=== PATIENT | male | born 1970 | race Caucasian/White ===

== ENCOUNTER → 2021-05-31 03:51 | Outpatient (CLI) | payer OTHER, SELFPAY ==
[2021-05-31 18:30] LABS: SARS-CoV-2 RNA PCR Negative
== END ==
PROVIDERS: PCP Family Medicine; Visit Provider Surgery
DX: Z01.812 Encounter for preprocedural laboratory examination (principal); Z20.822 Contact with and (suspected) exposure to COVID-19
CPT/HCPCS: C9803; U0003; U0005

== ENCOUNTER 2021-06-03 02:32 | Day surgery (SDC) | payer OTHER, SELFPAY ==
[2021-05-31 10:39] VITALS: BMI 34.0
--- NOTE | 2021-06-02 15:00 | PM.SD2 ---
Same Day Admit/Disch: HPI History of Present Illness Chief complaint: umbilical hernia Narrative: Spenser Anderson is a 50 year old male with a 2 year history of an umbilical hernia. The hernia has had some overlying skin changes and is now larger and more bothersome. He was seen in the office and is taken to surgery for umbilical hernia repair with mesh under anesthesia as an outpatient. [facility] Surgical History Surgical History History of appendectomy Family History Family History Father Heart problem Mother Hypertension Sibling Asthma Grandparent Heart problem Grandparent Heart problem Social History Social History Smoking packs per day: 0.5 Smoking cigarettes per day: 10.0 Years smoked: 30 Smoking pack-years: 15.00 Smoking status: Former smoker Tobacco type: cigarettes Smoking end date: 08/16/11 Alcohol intake: current Drinks per week: 1 Substance use type: does not use Living arrangements: with family Spiritual care concerns: No Same Day Admit/Disch: Med Pre-admit Medications Home Medications Medication Instructions Recorded Confirmed Type hydrocodone-acetaminophen 1 - 2 tablet PO Q6H PRN #10 tablet 06/03/21 Rx ketorolac 10 mg PO Q6H 4 Days #16 tablet 06/03/21 Rx Exam Const: General: comfortable, no acute distress, alert and awake HENMT: Head: normocephalic and atraumatic Mouth: Yes Normal oral and palatal mucosa present Eyes: Conjunctivae: conjunctivae normal Pupils: Equal, round and reactive pupils present EOM: EOMs intact bilaterally Neck: Neck: normal visual inspection, no lymphadenopathy and nontender Resp: Effort & Inspection: normal respiratory effort Auscultation: clear to auscultation bilaterally Cardio: Rate: regular rate Rhythm: regular rhythm Heart sounds: no gallops, no murmurs and no rubs GI: Inspection: non-distended, visible herniation (Umbilical with dusky overlying skin) and other (Diastasis recti noted) GI Palp: Yes Soft to palpation, No Hepatomegaly present, No Splenomegaly present and Yes Hernia present (Umbilical, too tender to reduce) Auscultation: normal bowel sounds Skin: Lesions: no lesions Rashes: no rashes Neuro: General: no focal motor deficits and CN's II-XI intact bilaterally Cranial nerves: Yes Equal, round and reactive pupils present, Yes Bilaterally intact EOM present, Yes facial symmetry and Yes Midline tongue present Speech: normal speech Motor exam (neuro): 5/5 motor strength present throughout and Motor abnormalities not present Extrem: General: no clubbing, cyanosis or edema and edema Psych: Affect: normal affect Thought process: Normal thought process present Insight: Good insight present (Psych) DS: Summary Time Spent with Patient Time attestation: Total time spent providing and/or coordinating discharge services: DS: Admitting Diagnosis Admitting Diagnosis Symptomatic reducible umbilical hernia-plan to repair under anesthesia and also using local anesthetic as an outpatient. The procedure the risks benefits have been discussed. All questions were answered. He understands and agrees to go ahead. Discharge Plan Discharge Patient Disposition: Home, Self-Care Discharge Instructions: 1. May shower the day after surgery over incision. 2. Call office for: -Wound increasingly painful or bleeding -Vomiting -Fever of greater than 101 degrees 3. Expect some blood on dressing or on skin. 4. If no bowel movement for three days, take 1 oz. (30 ml) Milk of Magnesia; if no results, take Fleets enema. 5. No heavy lifting > 15-20 pounds for 2 weeks. 6. No driving for 3 days or while taking narcotic pain medications. 7. Up walking 10-30 minutes three times per day.
[2021-06-03 11:17] VITALS: BP 125/85; PULSE 71; RESP 20; TEMP 36.6; O2SAT 98
[2021-06-03] MEDS: ACETAMINOPHEN 500 MG TABLET 1000 MG PO (11:20)
[2021-06-03] MEDS: LACTATED RINGERS 1,000 ML 30 ML IV CONT (11:40)
[2021-06-03] MEDS: KETOROLAC 15 MG/ML VIAL (*BKC) IV PUSH (11:43)
--- NOTE | 2021-06-03 12:00 | WPDANESEPPF ---
Anes - Initial Pre Proc Eval Procedure: Operation Date: 06/03/21 13:00 Proposed Procedures p Umbilical Hernia Repair with Mesh - Cam Casanova MD Date/Time: 06/03/21 12:00 Surgeon: Cam Casanova MD Pre Op Diagnosis: umbilical hernia Patient Data Age: 50 Gender: M Height: 1.68 m Weight: 92.7 kg Last Vital Signs Temp 36.6 C 06/03/21 11:17 Pulse 71 06/03/21 11:17 Resp 20 06/03/21 11:17 BP 125/85 06/03/21 11:17 Pulse Ox 98 06/03/21 11:17 Allergies Allergy/AdvReac Type Severity Reaction Status Date / Time No Known Allergies Allergy Verified 05/31/21 10:36 Home Medications Medication Instructions Recorded Confirmed Type No Home Medications 05/31/21 06/03/21 History Patient hx anesthesia problems: none Family hx anesthesia problems: none PMFSH Surgical History Surgical History History of appendectomy Family History Family History Father Heart problem Mother Hypertension Sibling Asthma Grandparent Heart problem Grandparent Heart problem Social History Social History Smoking packs per day: 0.5 Smoking cigarettes per day: 10.0 Years smoked: 30 Smoking pack-years: 15.00 Smoking status: Former smoker Tobacco type: cigarettes Smoking end date: 08/16/11 Alcohol intake: current Drinks per week: 1 Substance use type: does not use Living arrangements: with family Spiritual care concerns: No Anes - Eval Final PreProcedure Day of Procedure 06/03/21 12:00 Patient weight: obese Heart: regular rate and rhythm Lungs: clear to auscultation Airway: Mallampati scale class II Neurological: alert and oriented Last oral intake: >/= 8 hours ASA classification: II Emergent: no Anesthetic plan: proceed Anesthesia type and monitoring: general GIVS and standard monitoring Informed Consent: The patient's anesthetic plan and its attendant risks and benefits were discussed with the patient/family/POA. Questions were solicited and answers provided to the satisfaction of the patient/family/POA.
--- NOTE | 2021-06-03 12:23 | WPDHPUPDATE1 ---
History and Physical Update Update Date/Time: 06/03/21 12:23 History and Physical has been reviewed, including an updated exam of the patient. There are NO changes in the patient's condition. Risks, benefits, and alternatives have been discussed and questions answered. Patient agrees to proceed with procedure.
[2021-06-03] MEDS: ceFAZolin 2 GM/D5W 50 ML 2 GM/50 ML BAG IVPB (13:27)
[2021-06-03] MEDS: BUPIVACAINE/EPINEPHRINE 0.5% 30 ML VIAL INFILTRATE (13:49)
[2021-06-03 14:25] VITALS: BP 115/78; PULSE 66; RESP 14
--- NOTE | 2021-06-03 14:45 | P.OP_ITS ---
Procedure Note - Detailed Date of Procedure 06/03/21 Pre-op Diagnosis umbilical hernia Post-op Diagnosis same Procedure Performed Umbilical hernia repair with 4.6 cm Parietex underlay mesh Surgeon Cam Casanova MD [employer] Miguelina TINEO Anesthesia MAC and local (0.5% Marcaine with epinephrine) Indications Patient is a 50-year-old man with an umbilical hernia for quite a long time. Recently it has been more bothersome and he is taken to surgery today for repair Findings Showed a 1.2 cm hernia defect. Description of Procedure Patient was checked in the preoperative holding area. He was taken to surgery and IV sedation was administered. Prep and drape of the abdomen was carried out. The proposed incision along the lower margin of the umbilicus was marked on the skin. Local was infiltrated in the area of the anticipated incision and in the surrounding subcutaneous tissues. Incision was made dissection was carried down through the subcutaneous to the hernia sac. The hernia sac was then dissected from the subcutaneous and also dissected from the overlying umbilical skin. I dissected around the hernia defect circumferentially. I then infiltrated additional local into the fascia around the neck of the hernia. The hernia sac was then amputated at its neck. It was discarded. Additional local was infiltrated into the fascia around the hernia defect. A 4.6 cm Parietex habematolel was chosen. It was folded and placed in the defect. It was then positioned symmetrically. Transfascial cranial and caudal sutures of 0 Ethibond were placed. The sutures were placed in such a fashion that they would draw the edges of the hernia defect towards 1 another when tied. They were tied down and had the desired effect. [id number] mattress sutures of 0 Ethibond were then used to close the hernia defect over the mesh. Each of these sutures incorporated a bit of mesh as well. I then sutured the umbilical skin to the fascia with interrupted 3 0 Vicryl suture. Subcutaneous interrupted 3-0 Vicryl sutures were placed. Subcuticular interrupted 4 0 Vicryl skin stitches were placed. Finally a running 4-0 Monocryl skin stitch was placed. The wound was dressed with Exofin surgical adhesive. Patient was awakened and taken to recovery in good condition. Sponge and needle counts were correct x2. Implants 4.6 cm Parietex habematolel Estimated Blood Loss 5 Drains No Packing No Pathology none sent Complications None Condition stable Disposition same day
[2021-06-03 15:25] VITALS: BP 116/79; PULSE 60; RESP 14
== END 2021-06-03 15:55 | disposition home or self-care (01) ==
PROVIDERS: PCP Family Medicine; Visit Provider Surgery
PROC: (CPT 49585; principal; 2021-06-03 13:00)
DX: K42.9 Umbilical hernia without obstruction or gangrene (principal); Z87.891 Personal history of nicotine dependence; E66.9 Obesity, unspecified; Z68.33 Body mass index [BMI] 33.0-33.9, adult
CPT/HCPCS: 49585; A9270; C1781; C9803; J0690; J1885; J2250; J2704; J3010; J7120; U0003; U0005